=== PATIENT | male | born 1995 | race Caucasian/White ===

== ENCOUNTER 2018-05-02 16:59 | Emergency (ER) | payer SELFPAY ==
[2018-05-02] MEDS: ALBUTEROL 0.083% (NEB) 2.5 MG/3 ML AMP NEB (17:16)
[2018-05-02] MEDS: ACETAMINOPHEN 500 MG TAB PO (18:11)
== END 2018-05-02 18:55 | disposition home or self-care (01) ==
LOC: E/R 16:59
DX: T59.891A Toxic effect of other specified gases, fumes and vapors, accidental (unintentional), initial encounter (principal)
CPT/HCPCS: 94664; 99283-25